=== PATIENT | male | born 1950 | race Caucasian/White ===

== ENCOUNTER 2024-12-22 11:33 | Inpatient (IN) ==
[2024-12-22] MEDS: Acetaminophen IV 1 GM/100ML 1,000 MG/100 ML BAG IV ONE (12:54)
[2024-12-22 13:14] LABS: ABS Basophils 0.1 10^3/uL (0.0-0.1); ABS Eosinophils 0.1 10^3/uL (0.0-0.5); ABS Lymphocytes 0.6 10^3/uL (1.0-4.8); ABS Monocytes 0.2 10^3/uL (0.0-1.1); ABS Neutrophils 6.7 10^3/uL (1.5-7.6); Hematocrit 41.4 % (38-53); Hemoglobin 13.9 g/dL (13.2-16.3); Lymphocyte % 8.2 %; Mean Corpuscular Hgb Conc 33.7 g/dL (31-36); Mean Corpuscular Volume 89.2 fL (80-97); Mean Platelet Volume 7.5 fL (7.5-11.2); Platelet Count 244 10^3/uL (150-450); Red Blood Count 4.64 10^6/uL (4.06-5.63); Red Cell Distribution Width 16.4 % (12-17); White Blood Count 7.7 10^3/uL (3.6-10.2)
[2024-12-22 13:18] LABS: INR 1.08 (0.85-1.14)
[2024-12-22 14:00] LABS: Albumin/Globulin Ratio 1.7 (1-3); Calcium 9.6 mg/dL (8.6-10.3); Creatinine, Serum 0.96 mg/dL (0.67-1.17); Globulin 2.4 g/dL (2-4); Potassium 4.7 mmol/L (3.5-5.0); Total Bilirubin 0.9 mg/dL (0.2-1.0); Total Protein 6.4 g/dL (6.4-8.9)
[2024-12-22] MEDS: Morphine 4 MG/ML VIAL (1 ml) ONE (16:55)
[2024-12-22 19:45] LABS: Urine Appearance Clear; Urine Bilirubin Negative (Negative); Urine Blood 1+ (Negative); Urine Color Light-Yellow; Urine Glucose 3+ (>=300 mg/dL) (Negative); Urine Ketones Negative (Negative); Urine Nitrite Negative (Negative); Urine Protein Negative (Negative); Urine Specific Gravity 1.018 (1.002-1.030); Urine Urobilinogen Negative (Negative); Urine pH 6.5 (5.0-8.0)
[2024-12-22 19:58] LABS: Urine Bacteria Absent /HPF (Absent); Urine Red Blood Cell 2+(6-10/hpf) /HPF (0-Trace); Urine Squamous Epithelial Cell Present /HPF (Absent); Urine White Blood Cell 1+(6-10/hpf) /HPF (0-Trace)
[2024-12-22] MEDS: Morphine 2 MG/ML SYRINGE IV PRN (20:35)
[2024-12-22] MEDS: Heparin 5000 UNITS/ML 1 mL VIAL SUBCUT ONE (20:36)
[2024-12-22] MEDS ORDERED: Senna TAB 8.6 mg TAB PO PRN (22:49)
[2024-12-22] MEDS ORDERED: Polyethylene Glycol 3350 17 GM PACKET PO PRN (22:49)
[2024-12-22] MEDS ORDERED: Magnesium Hydroxide LIQ 30 ML UDC PO PRN (22:49)
[2024-12-23 06:49] LABS: Hematocrit 40.5 % (38-53); Hemoglobin 13.8 g/dL (13.2-16.3); Mean Corpuscular Hemoglobin 30.2 pg (27-33); Mean Corpuscular Hgb Conc 34.1 g/dL (31-36); Mean Corpuscular Volume 88.6 fL (80-97); Red Blood Count 4.57 10^6/uL (4.06-5.63); Red Cell Distribution Width 16.2 % (12-17); White Blood Count 8.5 10^3/uL (3.6-10.2)
[2024-12-23 06:54] LABS: Anion Gap 10 mmol/L (2-16); Blood Urea Nitrogen 16 mg/dL (6-24); CO2 Carbon Dioxide 27 mmol/L (22-32); Calcium 8.9 mg/dL (8.6-10.3); Chloride 102 mmol/L (101-111); Creatinine, Serum 0.77 mg/dL (0.67-1.17); Glucose 125 mg/dL (70-100); Magnesium 1.6 mg/dL (1.9-2.7); Sodium 139 mmol/L (135-145); eGFR CKD-EPI 95.1 (>60)
[2024-12-23 07:59] LABS: ABS Basophils 0.1 10^3/uL (0.0-0.1); ABS Eosinophils 0.1 10^3/uL (0.0-0.5); ABS Monocytes 0.6 10^3/uL (0.0-1.1); ABS Neutrophils 6.8 10^3/uL (1.5-7.6); Eosinophil % 0.8 %; Lymphocyte % 12.1 %; Mean Platelet Volume 8.1 fL (7.5-11.2); Platelet Count 200 10^3/uL (150-450)
[2024-12-23] MEDS: Magnesium Hydroxide LIQ 30 ML UDC PO SCH (08:27)
[2024-12-23] MEDS: Magnesium Sulf 4 GM/100 ML IV 4,000 MG/100 ML BAG IVPB ONE (09:30)
[2024-12-23] MEDS ORDERED: Rocuronium 50 mg VIAL 10 mg/ml 5 ml VIAL (50 mg) ONE (11:59)
[2024-12-23] MEDS ORDERED: Midazolam 2 mg/2 ml VIAL 1 mg/ml 2 ml VIAL (2 mg) ONE (11:59)
[2024-12-23] MEDS ORDERED: Ondansetron 4 mg VIAL 2 MG/ML 2 ml VIAL ONE (11:59)
[2024-12-23] MEDS ORDERED: Lidocaine 2% PF 5 ML VIAL ONE (11:59)
[2024-12-23] MEDS ORDERED: Dexamethasone IV 4 MG/ML VIAL 1 ml VIAL ONE (11:59)
[2024-12-23] MEDS ORDERED: Propofol 10 MG/ML 20 ML BTL ONE (11:59)
[2024-12-23] MEDS ORDERED: fentaNYL 100 mcg/2 ml 50 MCG/ML VIAL ONE (11:59)
[2024-12-23] MEDS ORDERED: ceFAZolin 2 GM PREMIX 2 GM/50 ML BAG ONE (12:50)
[2024-12-23] MEDS ORDERED: HYDROmorphone 1 MG/1 ML SYRINGE IV PRN (12:54)
[2024-12-23] MEDS ORDERED: Naloxone 0.4 mg VIAL 0.4 mg/ml 1 ml VIAL IV PRN (12:54)
[2024-12-23] MEDS ORDERED: Bupivacaine 0.5% 50 ML MDV VIAL ONE (13:14)
[2024-12-23] MEDS ORDERED: Senna TAB 8.6 mg TAB PO PRN (15:58)
[2024-12-23] MEDS: Lactated Ringers 1000 ml BAG 1,000 ML IV SCH ×2 (16:19→17:06)
[2024-12-23] MEDS: Acetaminophen IV 1 GM/100ML 1,000 MG/100 ML BAG IV ONE (16:19)
[2024-12-23 17:19] LABS: Hematocrit 39.6 % (38-53); Hemoglobin 13.5 g/dL (13.2-16.3)
[2024-12-24] MEDS: ceFAZolin 2 GM PREMIX 2 GM/50 ML BAG IV SCH ×2 (00:26→07:24)
[2024-12-24] MEDS: Lactated Ringers 1000 ml BAG 1,000 ML IV ONE (03:32)
[2024-12-24 06:29] LABS: Hemoglobin 10.1 g/dL (13.2-16.3); Mean Platelet Volume 7.9 fL (7.5-11.2); Platelet Count 165 10^3/uL (150-450)
[2024-12-24 06:52] LABS: Blood Urea Nitrogen 21 mg/dL (6-24); CO2 Carbon Dioxide 28 mmol/L (22-32); Calcium 7.9 mg/dL (8.6-10.3); Chloride 105 mmol/L (101-111); Creatinine, Serum 0.91 mg/dL (0.67-1.17); Glucose 247 mg/dL (70-100); Sodium 133 mmol/L (135-145); eGFR CKD-EPI 89.5 (>60)
[2024-12-24 07:47] LABS: Magnesium 1.7 mg/dL (1.9-2.7)
[2024-12-24] MEDS: Enoxaparin 40 MG/0.4 ML SYR SUBCUT SCH (11:03)
[2024-12-25 05:49] LABS: Hemoglobin 8.8 g/dL (13.2-16.3); Mean Corpuscular Hemoglobin 31.1 pg (27-33); Mean Corpuscular Hgb Conc 35.1 g/dL (31-36); Mean Corpuscular Volume 88.7 fL (80-97); Mean Platelet Volume 7.7 fL (7.5-11.2); Platelet Count 137 10^3/uL (150-450); Red Blood Count 2.82 10^6/uL (4.06-5.63); Red Cell Distribution Width 16.2 % (12-17); White Blood Count 6.8 10^3/uL (3.6-10.2)
[2024-12-25 06:20] LABS: Calcium 7.9 mg/dL (8.6-10.3); Creatinine, Serum 0.79 mg/dL (0.67-1.17); Magnesium 1.6 mg/dL (1.9-2.7); Potassium 3.9 mmol/L (3.5-5.0); eGFR CKD-EPI 94.4 (>60)
[2024-12-25] MEDS: Magnesium Sulfate 2 gm BAG 2 GM/50 ML BAG IVPB ONE (11:47)
[2024-12-25 14:50] LABS: Hematocrit 24.7 % (38-53); Hemoglobin 8.5 g/dL (13.2-16.3)
[2024-12-25] MEDS: Magnesium Hydroxide LIQ 30 ML UDC PO PRN (21:52)
[2024-12-25] MEDS: Senna TAB 8.6 mg TAB PO PRN (21:53)
[2024-12-26 06:30] LABS: Hematocrit 24.1 % (38-53); Hemoglobin 8.4 g/dL (13.2-16.3); Mean Corpuscular Hemoglobin 30.9 pg (27-33); Mean Corpuscular Volume 88.4 fL (80-97); Mean Platelet Volume 7.9 fL (7.5-11.2); Platelet Count 141 10^3/uL (150-450); Red Blood Count 2.73 10^6/uL (4.06-5.63); Red Cell Distribution Width 16.5 % (12-17); White Blood Count 6.1 10^3/uL (3.6-10.2)
[2024-12-26] MEDS: Polyethylene Glycol 3350 17 GM PACKET PO PRN (09:50)
[2024-12-26] MEDS ORDERED: Acetaminophen IV 1 GM/100ML 1,000 MG/100 ML BAG IV SCH (12:00)
[2024-12-27 05:36] LABS: Hematocrit 24.6 % (38-53); Hemoglobin 8.4 g/dL (13.2-16.3); Mean Corpuscular Hemoglobin 30.5 pg (27-33); Mean Corpuscular Hgb Conc 34.1 g/dL (31-36); Mean Corpuscular Volume 89.4 fL (80-97); Mean Platelet Volume 7.5 fL (7.5-11.2); Platelet Count 166 10^3/uL (150-450); Red Blood Count 2.75 10^6/uL (4.06-5.63); Red Cell Distribution Width 16.5 % (12-17); White Blood Count 7.4 10^3/uL (3.6-10.2)
[2024-12-27] MEDS: Magnesium Sulfate 2 gm BAG 2 GM/50 ML BAG IVPB ONE (08:49)
[2024-12-27 13:41] LABS: Calcium 8.5 mg/dL (8.6-10.3); Creatinine, Serum 0.91 mg/dL (0.67-1.17); eGFR CKD-EPI 89.5 (>60)
[2024-12-27] MEDS ORDERED: Dextrose 50% Syringe 50 ml 25 GM/50 ML SYRINGE IV PUSH PRN (17:46)
[2024-12-28 06:04] LABS: ABS Eosinophils 0.2 10^3/uL (0.0-0.5); ABS Lymphocytes 0.7 10^3/uL (1.0-4.8); ABS Monocytes 0.5 10^3/uL (0.0-1.1); ABS Neutrophils 4.8 10^3/uL (1.5-7.6); Eosinophil % 2.8 %; Hematocrit 25.5 % (38-53); Hemoglobin 8.6 g/dL (13.2-16.3); Lymphocyte % 11.7 %; Mean Corpuscular Hemoglobin 29.9 pg (27-33); Mean Corpuscular Hgb Conc 33.9 g/dL (31-36); Mean Corpuscular Volume 88.2 fL (80-97); Mean Platelet Volume 7.1 fL (7.5-11.2); Platelet Count 202 10^3/uL (150-450); Red Blood Count 2.89 10^6/uL (4.06-5.63); Red Cell Distribution Width 16.2 % (12-17); White Blood Count 6.3 10^3/uL (3.6-10.2)
[2024-12-28 06:26] LABS: Calcium 8.4 mg/dL (8.6-10.3); Creatinine, Serum 0.88 mg/dL (0.67-1.17); Potassium 3.9 mmol/L (3.5-5.0); eGFR CKD-EPI 91.4 (>60)
[2024-12-28 07:44] LABS: Magnesium 1.8 mg/dL (1.9-2.7)
[2024-12-28] MEDS: Potassium Chlor 20 meq TAB.ER PO ONE (08:35)
[2024-12-28 10:04] VITALS: BP 118/77
== END 2024-12-28 13:45 | DRG 522 ==
LOC: EDHOLD 11:33 → ED 11:33 → SUATTDRO 13:21 → SSU 15:11 → SUATTDRO 12-23 11:43
PROVIDERS: ADMIT Student in an Organized Health Care Education/Training Program; ATTEND Hospitalist

== ENCOUNTER 2024-12-30 15:12 | Inpatient (IN) ==
[2024-12-30 15:59] LABS: ABS Lymphocytes 0.5 10^3/uL (1.0-4.8); ABS Monocytes 0.7 10^3/uL (0.0-1.1); ABS Neutrophils 9.5 10^3/uL (1.5-7.6); ABS Nucleated RBC 0.01 10^3/ul; Hematocrit 23.4 % (38-53); Hemoglobin 8.1 g/dL (13.2-16.3); Lymphocyte % 4.4 %; Mean Corpuscular Hemoglobin 30.9 pg (27-33); Mean Corpuscular Hgb Conc 34.7 g/dL (31-36); Mean Corpuscular Volume 88.9 fL (80-97); Nucleated Red Blood Cells % 0.1 %/100WBC (0.0-0.8); Platelet Count 250 10^3/uL (150-450); Red Blood Count 2.63 10^6/uL (4.06-5.63); Red Cell Distribution Width 16.6 % (12-17); White Blood Count 10.7 10^3/uL (3.6-10.2)
[2024-12-30 16:01] LABS: Activated Partial Thrombo Time 26.7 seconds (26.0-38.0); INR 1.15 (0.85-1.14)
[2024-12-30 16:20] LABS: ALT 16 U/L (7-52); Albumin 3.1 g/dL (3.5-5.7); Albumin/Globulin Ratio 1.3 (1-3); Alkaline Phosphatase 57 U/L (35-149); Anion Gap 5 mmol/L (2-16); Blood Urea Nitrogen 21 mg/dL (6-24); CO2 Carbon Dioxide 33 mmol/L (22-32); Calcium 8.6 mg/dL (8.6-10.3); Chloride 101 mmol/L (101-111); Cholesterol 92 mg/dL; Creatinine, Serum 0.79 mg/dL (0.67-1.17); Globulin 2.3 g/dL (2-4); Glucose 242 mg/dL (70-100); HDL Cholesterol 38.9 mg/dL; LDL Cholesterol 35 mg/dL; Sodium 139 mmol/L (135-145); Total Protein 5.4 g/dL (6.4-8.9); Triglycerides 89 mg/dL; eGFR CKD-EPI 94.4 (>60)
[2024-12-30] MEDS: Morphine 4 MG/ML VIAL (1 ml) IV ONE (17:02)
[2024-12-30] MEDS: Metoprolol Tartrate 5 mg VIAL 5 ml VIAL (1 mg/ml) IV PRN (17:38)
[2024-12-30] MEDS ORDERED: LORazepam 2 MG/ML 1 mL Syringe IV ONE (18:42)
[2024-12-30] MEDS: LORazepam 2 mg VIAL 1 ml IV PUSH ONE ×2 (18:55→19:30)
[2024-12-30 19:03] LABS: Urine Appearance Clear; Urine Bilirubin Negative (Negative); Urine Blood Trace (Negative); Urine Color Yellow; Urine Glucose 2+ (>=150 mg/dL) (Negative); Urine Ketones Negative (Negative); Urine Nitrite Negative (Negative); Urine Protein 1+ (>=30 mg/dL) (Negative); Urine Specific Gravity 1.018 (1.002-1.030); Urine Urobilinogen 1+ (Negative)
[2024-12-30] MEDS ORDERED: LORazepam 2 mg VIAL 1 ml ONE (19:12)
[2024-12-30 19:17] LABS: Urine Bacteria Absent /HPF (Absent); Urine Red Blood Cell 3+(>10/hpf) /HPF (0-Trace); Urine Squamous Epithelial Cell Present /HPF (Absent); Urine White Blood Cell Trace(0-5/hpf) /HPF (0-Trace)
[2024-12-30 19:30] LABS: Direct Bilirubin Redraw 0.3 mg/dL (0.1-0.5)
[2024-12-30] MEDS ORDERED: Metoprolol Tartrate 5 mg VIAL 5 ml VIAL (1 mg/ml) ONE (19:35)
[2024-12-30] MEDS: Lactated Ringers SEPSIS* BAG 2,030 ML IV ONE (20:06)
[2024-12-30 20:08] LABS: Venous Bicarbonate HCO3 28.8 mmol/L (24-28)
[2024-12-30 20:11] LABS: ABS Basophils 0.1 10^3/uL (0.0-0.1); ABS Lymphocytes 0.7 10^3/uL (1.0-4.8); Hematocrit 23.3 % (38-53); Hemoglobin 7.8 g/dL (13.2-16.3); Lymphocyte % 5.2 %; Mean Corpuscular Hemoglobin 29.8 pg (27-33); Mean Corpuscular Hgb Conc 33.6 g/dL (31-36); Mean Corpuscular Volume 88.7 fL (80-97); Mean Platelet Volume 6.9 fL (7.5-11.2); Platelet Count 273 10^3/uL (150-450); Red Blood Count 2.63 10^6/uL (4.06-5.63); Red Cell Distribution Width 16.3 % (12-17); White Blood Count 12.7 10^3/uL (3.6-10.2)
[2024-12-30] MEDS ORDERED: Rocuronium 50 mg VIAL 10 mg/ml 5 ml VIAL (50 mg) ONE ×2 (20:13→20:32)
[2024-12-30] MEDS ORDERED: Succinylcholine 200 mg VIAL 20 mg/ml 10 ml VIAL (200 mg) ONE (20:14)
[2024-12-30] MEDS ORDERED: Propofol 10 mg/ml 100 ML BTL 1,000 MG/100 ML BTL ONE (20:14)
[2024-12-30] MEDS ORDERED: Norepinephrine 32MCG/ML D5WBAG 8,000 MCG/250 ML BAG IV ONE (20:19)
[2024-12-30 20:21] LABS: INR 1.16 (0.85-1.14)
[2024-12-30] MEDS ORDERED: Ketamine HCL 50 mg/ml 10 ml VIAL (500 MG) ONE (20:32)
[2024-12-30] MEDS: Norepinephrine 32MCG/ML D5WBAG 8,000 MCG/250 ML BAG IV SCH (20:32)
[2024-12-30 20:36] LABS: Albumin 3.1 g/dL (3.5-5.7); Albumin/Globulin Ratio 1.3 (1-3); C Reactive Protein 227.47 mg/L (<8.01); Calcium 8.6 mg/dL (8.6-10.3); Creatinine, Serum 0.88 mg/dL (0.67-1.17); Globulin 2.3 g/dL (2-4); Potassium 4.1 mmol/L (3.5-5.0); Total Bilirubin 1.9 mg/dL (0.2-1.0); Total Protein 5.4 g/dL (6.4-8.9); eGFR CKD-EPI 91.4 (>60)
[2024-12-30] MEDS: Propofol 10 mg/ml 100 ML BTL 1,000 MG/100 ML BTL IV SCH (20:45)
[2024-12-30] MEDS ORDERED: fentaNYL 100 mcg/2 ml 50 MCG/ML VIAL ONE (21:18)
[2024-12-30 21:43] LABS: Magnesium 1.8 mg/dL (1.9-2.7); Phosphorus 2.8 mg/dL (2.5-5.0)
[2024-12-30] MEDS: fentaNYL 100 mcg/2 ml 50 MCG/ML VIAL IV SLOW PU ONE (22:45)
[2024-12-30] MEDS: Piperacillin/Tazobac 3.375 BAG 3.375 GM/100 ML BAG IV ONE (22:51)
[2024-12-30] MEDS ORDERED: Vancomycin per Pharmacy 1 EA NOTE FOLLOW UP SCH (23:00)
[2024-12-30] MEDS ORDERED: Zosyn per Pharmacy NOTE FOLLOW UP SCH (23:00)
[2024-12-30] MEDS: Iohexol 350 (CONTRAST) 500 ML MDV IV ONE (23:55)
[2024-12-31] MEDS: Vancomycin 1,000 MG in NS 0.9% 250 ml 250 ML IVPB ONE (00:12)
[2024-12-31] MEDS ORDERED: Lorazepam PYXIS KEY PRN (01:52)
[2024-12-31] MEDS: Chlorhexidine MOUTHWASH 0.12% 15 ML UDC TOPICAL SCH (02:27)
[2024-12-31] MEDS: ZOSYN 3.375 GM Q8H per EXTENDED INFUSION IV SCH (02:27)
[2024-12-31] MEDS ORDERED: ZOSYN 3.375 GM Q8H per EXTENDED INFUSION IV SCH (02:30)
[2024-12-31] MEDS ORDERED: Dextrose 50% Syringe 50 ml 25 GM/50 ML SYRINGE IV PUSH PRN (02:58)
[2024-12-31 04:14] LABS: ABS Basophils 0.1 10^3/uL (0.0-0.1); ABS Lymphocytes 0.9 10^3/uL (1.0-4.8); ABS Monocytes 0.8 10^3/uL (0.0-1.1); ABS Neutrophils 9.2 10^3/uL (1.5-7.6); ABS Nucleated RBC 0.01 10^3/ul; Eosinophil % 0.1 %; Hematocrit 21.1 % (38-53); Hemoglobin 7.6 g/dL (13.2-16.3); Lymphocyte % 8.4 %; Mean Corpuscular Hemoglobin 31.9 pg (27-33); Mean Corpuscular Volume 88.7 fL (80-97); Mean Platelet Volume 7.5 fL (7.5-11.2); Nucleated Red Blood Cells % 0.1 %/100WBC (0.0-0.8); Platelet Count 249 10^3/uL (150-450); Red Blood Count 2.37 10^6/uL (4.06-5.63); Red Cell Distribution Width 16.9 % (12-17)
[2024-12-31 05:01] LABS: ALT 14 U/L (7-52); Albumin 2.7 g/dL (3.5-5.7); Albumin/Globulin Ratio 1.2 (1-3); Alkaline Phosphatase 52 U/L (35-149); Anion Gap 6 mmol/L (2-16); Blood Urea Nitrogen 26 mg/dL (6-24); CO2 Carbon Dioxide 29 mmol/L (22-32); Calcium 7.9 mg/dL (8.6-10.3); Chloride 99 mmol/L (101-111); Creatinine, Serum 0.84 mg/dL (0.67-1.17); Globulin 2.3 g/dL (2-4); Glucose 255 mg/dL (70-100); Sodium 134 mmol/L (135-145); Total Bilirubin 1.9 mg/dL (0.2-1.0); eGFR CKD-EPI 92.7 (>60)
[2024-12-31 06:37] LABS: Potassium, Whole Blood 5.1 mmol/L (3.4-4.5)
[2024-12-31] MEDS: Famotidine IV 10 MG/ML 2 ml VIAL (20 mg) IV SLOW PU SCH (08:07)
[2024-12-31] MEDS ORDERED: Sulfur Hexaflouride MICROSPHR 25 MG VIAL IV PRN (08:35)
[2024-12-31 08:42] LABS: Magnesium 1.8 mg/dL (1.9-2.7); Phosphorus 3.1 mg/dL (2.5-5.0)
[2024-12-31] MEDS ORDERED: Enoxaparin 40 MG/0.4 ML SYR SUBCUT SCH (09:00)
[2024-12-31] MEDS: Acetaminophen IV 1 GM/100ML 1,000 MG/100 ML BAG IV PRN (09:56)
[2024-12-31] MEDS ORDERED: Vancomycin 1000 MG in NS 0.9% 250 ML IVPB SCH (12:00)
[2024-12-31] MEDS: Vancomycin 1000 MG in NS 0.9% 250 ML IVPB SCH (12:07)
[2024-12-31] MEDS: fentaNYL 100 mcg/2 ml 50 MCG/ML VIAL IV SLOW PU PRN (12:24)
[2024-12-31] MEDS: Morphine 4 MG/ML VIAL (1 ml) ONE (14:10)
[2024-12-31] MEDS: Morphine 2 MG/ML SYRINGE IV PRN ×2 (14:53→17:00)
[2024-12-31] MEDS ORDERED: fentaNYL 250 mcg/5 ml 50 MCG/ML 5 ml VIAL (250 MCG) ONE (20:11)
[2024-12-31] MEDS ORDERED: Propofol 10 MG/ML 20 ML BTL ONE (20:11)
[2024-12-31] MEDS ORDERED: Lidocaine 2% PF 5 ML VIAL ONE (20:11)
[2024-12-31] MEDS ORDERED: Lidocaine 1% w EPI 1:200,000 SDV 30 ML VIAL ONE (20:11)
[2024-12-31] MEDS ORDERED: Phenylephrine IV 10 MG/ML 1 ml VIAL ONE (20:12)
[2024-12-31] MEDS ORDERED: Rocuronium 50 mg VIAL 10 mg/ml 5 ml VIAL (50 mg) ONE ×2 (20:12→22:17)
[2024-12-31] MEDS ORDERED: Ondansetron 4 mg VIAL 2 MG/ML 2 ml VIAL ONE (22:33)
[2024-12-31] MEDS ORDERED: Dexamethasone IV 4 MG/ML VIAL 1 ml VIAL ONE (22:33)
[2024-12-31] MEDS ORDERED: Acetaminophen IV 1 GM/100ML 1,000 MG/100 ML BAG IV ONE (23:21)
[2024-12-31] MEDS ORDERED: HYDROmorphone 0.5 MG/0.5 ML SYRINGE ONE (23:25)
[2025-01-01] MEDS: HYDROmorphone 0.5 MG/0.5 ML SYRINGE IV SLOW PU PRN ×2 (01:56→07:50)
[2025-01-01 05:07] LABS: ABS Lymphocytes 0.2 10^3/uL (1.0-4.8); ABS Monocytes 0.4 10^3/uL (0.0-1.1); ABS Neutrophils 9.6 10^3/uL (1.5-7.6); Hematocrit 23.5 % (38-53); Hemoglobin 7.9 g/dL (13.2-16.3); Lymphocyte % 2.4 %; Mean Corpuscular Hemoglobin 29.6 pg (27-33); Mean Corpuscular Hgb Conc 33.9 g/dL (31-36); Mean Corpuscular Volume 87.4 fL (80-97); Platelet Count 271 10^3/uL (150-450); Red Blood Count 2.69 10^6/uL (4.06-5.63); Red Cell Distribution Width 18.9 % (12-17); White Blood Count 10.3 10^3/uL (3.6-10.2)
[2025-01-01 05:54] LABS: Albumin 2.7 g/dL (3.5-5.7); Albumin/Globulin Ratio 1.1 (1-3); Calcium 7.7 mg/dL (8.6-10.3); Globulin 2.4 g/dL (2-4); Magnesium 1.7 mg/dL (1.9-2.7); Phosphorus 3.9 mg/dL (2.5-5.0); Total Bilirubin 1.6 mg/dL (0.2-1.0); Total Protein 5.1 g/dL (6.4-8.9)
[2025-01-01] MEDS: Enoxaparin 40 MG/0.4 ML SYR SUBCUT SCH (07:55)
[2025-01-01] MEDS: Magnesium Sulfate 2 gm BAG 2 GM/50 ML BAG IVPB ONE (09:18)
[2025-01-01] MEDS: Magnesium Sulfate IV 1GM/100ML 1 GM/100 ML BAG IV ONE (10:24)
[2025-01-01] MEDS: ceFAZolin 1 GM in Dextrose 1 GM/50 ML BAG IVPB SCH (10:45)
[2025-01-01] MEDS: Vancomycin Trough Check NOTE FOLLOW UP ONE (12:53)
[2025-01-02 05:28] LABS: ABS Basophils 0.1 10^3/uL (0.0-0.1); ABS Lymphocytes 0.9 10^3/uL (1.0-4.8); ABS Monocytes 0.5 10^3/uL (0.0-1.1); Eosinophil % 0.2 %; Hematocrit 21.2 % (38-53); Hemoglobin 7.4 g/dL (13.2-16.3); Lymphocyte % 10.2 %; Mean Corpuscular Hemoglobin 30.3 pg (27-33); Mean Corpuscular Hgb Conc 34.7 g/dL (31-36); Mean Corpuscular Volume 87.2 fL (80-97); Mean Platelet Volume 6.8 fL (7.5-11.2); Platelet Count 326 10^3/uL (150-450); Red Blood Count 2.43 10^6/uL (4.06-5.63); Red Cell Distribution Width 18.9 % (12-17); White Blood Count 8.4 10^3/uL (3.6-10.2)
[2025-01-02 06:17] LABS: Albumin 2.7 g/dL (3.5-5.7); Albumin/Globulin Ratio 1.2 (1-3); Creatinine, Serum 0.81 mg/dL (0.67-1.17); Globulin 2.2 g/dL (2-4); Magnesium 1.9 mg/dL (1.9-2.7); Phosphorus 2.4 mg/dL (2.5-5.0); Potassium 3.7 mmol/L (3.5-5.0); Total Bilirubin 1.1 mg/dL (0.2-1.0); Total Protein 4.9 g/dL (6.4-8.9); eGFR CKD-EPI 93.7 (>60)
[2025-01-02] MEDS ORDERED: Polyethylene Glycol 3350 17 GM PACKET PO PRN (13:07)
[2025-01-03 06:27] LABS: ABS Eosinophils 0.1 10^3/uL (0.0-0.5); ABS Lymphocytes 0.7 10^3/uL (1.0-4.8); ABS Monocytes 0.7 10^3/uL (0.0-1.1); ABS Neutrophils 8.4 10^3/uL (1.5-7.6); ABS Nucleated RBC 0.01 10^3/ul; Eosinophil % 1.3 %; Hematocrit 22.1 % (38-53); Hemoglobin 7.6 g/dL (13.2-16.3); Lymphocyte % 7.5 %; Mean Corpuscular Hemoglobin 30.3 pg (27-33); Mean Corpuscular Hgb Conc 34.4 g/dL (31-36); Mean Corpuscular Volume 88.1 fL (80-97); Nucleated Red Blood Cells % 0.1 %/100WBC (0.0-0.8); Platelet Count 402 10^3/uL (150-450); Red Blood Count 2.51 10^6/uL (4.06-5.63); Red Cell Distribution Width 18.1 % (12-17); White Blood Count 9.9 10^3/uL (3.6-10.2)
[2025-01-03 06:45] LABS: Calcium 8.3 mg/dL (8.6-10.3); Creatinine, Serum 0.73 mg/dL (0.67-1.17); Magnesium 1.7 mg/dL (1.9-2.7); Phosphorus 2.4 mg/dL (2.5-5.0); Potassium 3.6 mmol/L (3.5-5.0); eGFR CKD-EPI 96.7 (>60)
[2025-01-03] MEDS: Magnesium Sulfate 2 gm BAG 2 GM/50 ML BAG IVPB ONE (07:48)
[2025-01-03 09:08] LABS: C Reactive Protein 178.42 mg/L (<8.01)
[2025-01-03] MEDS: Magnesium Sulfate IV 1GM/100ML 1 GM/100 ML BAG IV ONE (11:58)
[2025-01-04 04:49] LABS: Urine Appearance Clear; Urine Bilirubin Negative (Negative); Urine Blood Trace (Negative); Urine Color Yellow; Urine Glucose Negative (Negative); Urine Ketones Negative (Negative); Urine Nitrite Negative (Negative); Urine Protein Trace (Negative); Urine Specific Gravity 1.013 (1.002-1.030); Urine Urobilinogen Negative (Negative)
[2025-01-04 05:35] LABS: Urine Bacteria Absent /HPF (Absent); Urine Red Blood Cell 1+(3-5/hpf) /HPF (0-Trace); Urine Squamous Epithelial Cell Present /HPF (Absent); Urine White Blood Cell Trace(0-5/hpf) /HPF (0-Trace)
[2025-01-04 05:58] LABS: ABS Eosinophils 0.1 10^3/uL (0.0-0.5); ABS Monocytes 0.6 10^3/uL (0.0-1.1); ABS Neutrophils 8.1 10^3/uL (1.5-7.6); Eosinophil % 1.3 %; Hematocrit 21.5 % (38-53); Hemoglobin 7.2 g/dL (13.2-16.3); Lymphocyte % 10.4 %; Mean Corpuscular Hemoglobin 29.7 pg (27-33); Mean Corpuscular Hgb Conc 33.6 g/dL (31-36); Mean Corpuscular Volume 88.5 fL (80-97); Platelet Count 497 10^3/uL (150-450); Red Blood Count 2.43 10^6/uL (4.06-5.63); Red Cell Distribution Width 18.7 % (12-17); White Blood Count 9.9 10^3/uL (3.6-10.2)
[2025-01-04 06:17] LABS: Calcium 8.2 mg/dL (8.6-10.3); Creatinine, Serum 0.73 mg/dL (0.67-1.17); Magnesium 1.9 mg/dL (1.9-2.7); Potassium 3.9 mmol/L (3.5-5.0); eGFR CKD-EPI 96.7 (>60)
[2025-01-04] MEDS: NS 0.9% 1000 ml BAG 1,000 ML IV ONE (18:23)
[2025-01-04 18:50] LABS: ABS Basophils 0.1 10^3/uL (0.0-0.1); ABS Eosinophils 0.1 10^3/uL (0.0-0.5); ABS Lymphocytes 1.2 10^3/uL (1.0-4.8); ABS Monocytes 0.8 10^3/uL (0.0-1.1); ABS Neutrophils 10.8 10^3/uL (1.5-7.6); ABS Nucleated RBC 0.02 10^3/ul; Eosinophil % 0.9 %; Hematocrit 19.2 % (38-53); Mean Corpuscular Hemoglobin 29.7 pg (27-33); Mean Corpuscular Hgb Conc 33.2 g/dL (31-36); Mean Corpuscular Volume 89.2 fL (80-97); Mean Platelet Volume 7.2 fL (7.5-11.2); Nucleated Red Blood Cells % 0.1 %/100WBC (0.0-0.8); Platelet Count 521 10^3/uL (150-450); Red Blood Count 2.16 10^6/uL (4.06-5.63); Red Cell Distribution Width 18.9 % (12-17)
[2025-01-04 18:52] LABS: Hemoglobin 6.4 g/dL (13.2-16.3)
[2025-01-04 19:44] LABS: ALT 11 U/L (7-52); Albumin 2.5 g/dL (3.5-5.7); Albumin/Globulin Ratio 1.1 (1-3); Alkaline Phosphatase 48 U/L (35-149); Anion Gap 7 mmol/L (2-16); Blood Urea Nitrogen 46 mg/dL (6-24); CO2 Carbon Dioxide 29 mmol/L (22-32); Chloride 103 mmol/L (101-111); Creatinine, Serum 0.82 mg/dL (0.67-1.17); Globulin 2.3 g/dL (2-4); Glucose 145 mg/dL (70-100); Lipase 35 U/L (11.0-82.0); Sodium 139 mmol/L (135-145); Total Bilirubin 1.4 mg/dL (0.2-1.0); Total Protein 4.8 g/dL (6.4-8.9); eGFR CKD-EPI 93.3 (>60)
[2025-01-04] MEDS: Iodixanol 320 (CONTRAST) 100 ML SDV IV ONE (20:06)
[2025-01-04] MEDS: Lactated Ringers 1000 ml BAG 1,000 ML IV ONE (21:25)
[2025-01-04] MEDS: Senna TAB 8.6 mg TAB PO SCH (23:15)
[2025-01-04] MEDS: Lactated Ringers 1000 ml BAG 1,000 ML IV SCH (23:26)
[2025-01-05 06:55] LABS: ABS Monocytes 0.7 10^3/uL (0.0-1.1); ABS Neutrophils 10.3 10^3/uL (1.5-7.6); ABS Nucleated RBC 0.01 10^3/ul; Eosinophil % 0.2 %; Hematocrit 16.3 % (38-53); Hemoglobin 5.5 g/dL (13.2-16.3); Lymphocyte % 8.6 %; Mean Corpuscular Hgb Conc 33.4 g/dL (31-36); Mean Corpuscular Volume 83.8 fL (80-97); Mean Platelet Volume 7.2 fL (7.5-11.2); Nucleated Red Blood Cells % 0.1 %/100WBC (0.0-0.8); Platelet Count 509 10^3/uL (150-450); Red Blood Count 1.95 10^6/uL (4.06-5.63); Red Cell Distribution Width 23.9 % (12-17); White Blood Count 12.1 10^3/uL (3.6-10.2)
[2025-01-05] MEDS: Pantoprazole VIAL 40 MG VIAL IV ONE (08:25)
[2025-01-05 08:54] LABS: Albumin 2.3 g/dL (3.5-5.7); Albumin/Globulin Ratio 1.2 (1-3); Calcium 7.7 mg/dL (8.6-10.3); Creatinine, Serum 0.85 mg/dL (0.67-1.17); Direct Bilirubin 0.3 mg/dL (0.03-0.18); Indirect Bilirubin 1.2 mg/dL (0.3-1.0); Magnesium 1.8 mg/dL (1.9-2.7); Phosphorus 2.7 mg/dL (2.5-5.0); Potassium 4.1 mmol/L (3.5-5.0); Total Bilirubin 1.5 mg/dL (0.2-1.0); Total Protein 4.3 g/dL (6.4-8.9); eGFR CKD-EPI 92.3 (>60)
[2025-01-05 08:59] LABS: Immature Retic Fraction 0.65
[2025-01-05 09:24] LABS: Corrected Retic Count 2.6 % (0.5-2.2); Hematocrit for Retic CNT 16.3 % (38-53); RBC Retic Count 1.95 10^6/ul (4.06-5.63)
[2025-01-05 09:36] LABS: INR 1.22 (0.85-1.14)
[2025-01-05] MEDS: cefTRIAXone 1 gm/50 mL D5W 1 GM/50 ML BAG IV SCH (10:22)
[2025-01-05 10:57] LABS: Activated Partial Thrombo Time 25.5 seconds (26.0-38.0); INR 1.26 (0.85-1.14)
[2025-01-05] MEDS: DOXYcycline 100 MG in NS 0.9% 250 ml 250 ML IVPB SCH (11:01)
[2025-01-05] MEDS: Haloperidol 5 mg/ml SDV IV/IM 5 MG/ML AMP IV SLOW PU PRN (13:26)
[2025-01-05 14:34] LABS: ABS Basophils 0.1 10^3/uL (0.0-0.1); ABS Lymphocytes 0.9 10^3/uL (1.0-4.8); ABS Monocytes 0.8 10^3/uL (0.0-1.1); ABS Neutrophils 7.7 10^3/uL (1.5-7.6); Eosinophil % 0.2 %; Hematocrit 22.8 % (38-53); Hemoglobin 7.8 g/dL (13.2-16.3); Lymphocyte % 9.3 %; Mean Corpuscular Hgb Conc 34.2 g/dL (31-36); Mean Corpuscular Volume 87.8 fL (80-97); Mean Platelet Volume 6.9 fL (7.5-11.2); Platelet Count 428 10^3/uL (150-450); Red Blood Count 2.59 10^6/uL (4.06-5.63); Red Cell Distribution Width 20.5 % (12-17); White Blood Count 9.5 10^3/uL (3.6-10.2)
[2025-01-05] MEDS ORDERED: fentaNYL 100 mcg/2 ml 50 MCG/ML VIAL ONE (14:34)
[2025-01-05] MEDS ORDERED: Midazolam 10 mg/10 ml VIAL 1 mg/ml 10 ml VIAL (10 mg) ONE (14:34)
[2025-01-05 16:10] LABS: .Transferrin 139 mg/dL (203-362); Total Iron Binding Capacity 195 mcg/dL (250-450)
[2025-01-05] MEDS: Phenylephrine 40 mcg/mL 10mL (400mcg) SYRINGE ONE (16:19)
[2025-01-05 16:31] LABS: Ferritin 198.1 ng/mL (24-336)
[2025-01-05 16:34] LABS: Folate 10.14 ng/mL (5.90-24.80)
[2025-01-05 16:36] LABS: Vitamin B12 628 pg/mL (180-914)
[2025-01-05] MEDS: Ferric Gluconate IV 250 MG in NS 0.9% 250 ml 200 ML IVPB SCH (17:36)
[2025-01-05] MEDS: Pantoprazole VIAL 40 MG VIAL IV SCH (19:57)
[2025-01-06 04:28] LABS: ABS Basophils 0.1 10^3/uL (0.0-0.1); ABS Eosinophils 0.1 10^3/uL (0.0-0.5); ABS Lymphocytes 1.1 10^3/uL (1.0-4.8); ABS Monocytes 0.8 10^3/uL (0.0-1.1); ABS Neutrophils 7.2 10^3/uL (1.5-7.6); Eosinophil % 0.8 %; Hematocrit 22.5 % (38-53); Hemoglobin 7.8 g/dL (13.2-16.3); Lymphocyte % 11.9 %; Mean Corpuscular Hemoglobin 30.6 pg (27-33); Mean Corpuscular Hgb Conc 34.9 g/dL (31-36); Mean Corpuscular Volume 87.7 fL (80-97); Mean Platelet Volume 6.7 fL (7.5-11.2); Platelet Count 508 10^3/uL (150-450); Red Blood Count 2.56 10^6/uL (4.06-5.63); Red Cell Distribution Width 20.4 % (12-17); White Blood Count 9.3 10^3/uL (3.6-10.2)
[2025-01-06 05:03] LABS: Calcium 7.9 mg/dL (8.6-10.3); Creatinine, Serum 0.82 mg/dL (0.67-1.17); Magnesium 1.8 mg/dL (1.9-2.7); Potassium 4.3 mmol/L (3.5-5.0); eGFR CKD-EPI 93.3 (>60)
[2025-01-06] MEDS: Magnesium Sulfate 2 gm BAG 2 GM/50 ML BAG IVPB ONE (08:53)
[2025-01-06] MEDS: Polyethylene Glycol 3350 17 GM PACKET PO SCH (09:08)
[2025-01-06] MEDS: HYDROmorphone 0.5 MG/0.5 ML SYRINGE IV SLOW PU PRN (11:23)
[2025-01-07 05:39] LABS: ABS Eosinophils 0.1 10^3/uL (0.0-0.5); ABS Lymphocytes 0.9 10^3/uL (1.0-4.8); ABS Monocytes 0.7 10^3/uL (0.0-1.1); ABS Neutrophils 5.7 10^3/uL (1.5-7.6); ABS Nucleated RBC 0.01 10^3/ul; Eosinophil % 1.6 %; Hematocrit 24.4 % (38-53); Hemoglobin 8.3 g/dL (13.2-16.3); Lymphocyte % 12.4 %; Mean Corpuscular Hemoglobin 30.6 pg (27-33); Mean Corpuscular Hgb Conc 34.1 g/dL (31-36); Mean Corpuscular Volume 89.7 fL (80-97); Mean Platelet Volume 6.6 fL (7.5-11.2); Nucleated Red Blood Cells % 0.1 %/100WBC (0.0-0.8); Platelet Count 560 10^3/uL (150-450); Red Blood Count 2.72 10^6/uL (4.06-5.63); Red Cell Distribution Width 20.5 % (12-17); White Blood Count 7.4 10^3/uL (3.6-10.2)
[2025-01-07 05:56] LABS: Calcium 8.3 mg/dL (8.6-10.3); Creatinine, Serum 0.69 mg/dL (0.67-1.17); Magnesium 1.8 mg/dL (1.9-2.7); eGFR CKD-EPI 98.3 (>60)
[2025-01-07] MEDS: Magnesium Sulfate 2 gm BAG 2 GM/50 ML BAG IVPB ONE (08:34)
[2025-01-07] MEDS ORDERED: HYDROmorphone 0.5 MG/0.5 ML SYRINGE IV SLOW PU PRN (10:18)
[2025-01-07] MEDS: Enoxaparin 40 MG/0.4 ML SYR SUBCUT SCH (12:47)
[2025-01-08 07:04] LABS: ABS Basophils 0.1 10^3/uL (0.0-0.1); ABS Eosinophils 0.1 10^3/uL (0.0-0.5); ABS Lymphocytes 0.9 10^3/uL (1.0-4.8); ABS Monocytes 0.6 10^3/uL (0.0-1.1); ABS Neutrophils 5.4 10^3/uL (1.5-7.6); ABS Nucleated RBC 0.01 10^3/ul; Eosinophil % 1.7 %; Hematocrit 24.7 % (38-53); Hemoglobin 8.6 g/dL (13.2-16.3); Lymphocyte % 12.4 %; Mean Corpuscular Hemoglobin 31.4 pg (27-33); Mean Corpuscular Hgb Conc 34.7 g/dL (31-36); Mean Corpuscular Volume 90.6 fL (80-97); Mean Platelet Volume 6.6 fL (7.5-11.2); Nucleated Red Blood Cells % 0.2 %/100WBC (0.0-0.8); Platelet Count 616 10^3/uL (150-450); Red Blood Count 2.72 10^6/uL (4.06-5.63); Red Cell Distribution Width 21.4 % (12-17); White Blood Count 7.1 10^3/uL (3.6-10.2)
[2025-01-08 07:35] LABS: Calcium 8.4 mg/dL (8.6-10.3); Creatinine, Serum 0.77 mg/dL (0.67-1.17); Magnesium 1.8 mg/dL (1.9-2.7); Potassium 4.2 mmol/L (3.5-5.0); eGFR CKD-EPI 95.1 (>60)
[2025-01-09 05:34] LABS: ABS Basophils 0.1 10^3/uL (0.0-0.1); ABS Eosinophils 0.1 10^3/uL (0.0-0.5); ABS Monocytes 0.6 10^3/uL (0.0-1.1); ABS Neutrophils 4.8 10^3/uL (1.5-7.6); ABS Nucleated RBC 0.01 10^3/ul; Eosinophil % 1.6 %; Hematocrit 29.4 % (38-53); Hemoglobin 9.9 g/dL (13.2-16.3); Lymphocyte % 15.2 %; Mean Corpuscular Hemoglobin 30.8 pg (27-33); Mean Corpuscular Hgb Conc 33.6 g/dL (31-36); Mean Corpuscular Volume 91.6 fL (80-97); Mean Platelet Volume 6.8 fL (7.5-11.2); Nucleated Red Blood Cells % 0.1 %/100WBC (0.0-0.8); Platelet Count 727 10^3/uL (150-450); Red Blood Count 3.22 10^6/uL (4.06-5.63); Red Cell Distribution Width 22.8 % (12-17); White Blood Count 6.6 10^3/uL (3.6-10.2)
[2025-01-09 14:34] LABS: Creatinine, Serum 0.82 mg/dL (0.67-1.17); Magnesium 1.9 mg/dL (1.9-2.7); Potassium 4.6 mmol/L (3.5-5.0); eGFR CKD-EPI 93.3 (>60)
[2025-01-10 05:45] LABS: ABS Basophils 0.1 10^3/uL (0.0-0.1); ABS Eosinophils 0.1 10^3/uL (0.0-0.5); ABS Lymphocytes 0.7 10^3/uL (1.0-4.8); ABS Monocytes 0.6 10^3/uL (0.0-1.1); ABS Neutrophils 6.7 10^3/uL (1.5-7.6); Hematocrit 28.4 % (38-53); Hemoglobin 9.6 g/dL (13.2-16.3); Lymphocyte % 8.3 %; Mean Corpuscular Hemoglobin 30.8 pg (27-33); Mean Corpuscular Hgb Conc 33.6 g/dL (31-36); Mean Corpuscular Volume 91.8 fL (80-97); Mean Platelet Volume 6.4 fL (7.5-11.2); Platelet Count 667 10^3/uL (150-450); Red Cell Distribution Width 22.3 % (12-17); White Blood Count 8.2 10^3/uL (3.6-10.2)
[2025-01-10 06:10] LABS: Calcium 8.8 mg/dL (8.6-10.3); Creatinine, Serum 0.89 mg/dL (0.67-1.17); Magnesium 1.9 mg/dL (1.9-2.7); Potassium 4.6 mmol/L (3.5-5.0); eGFR CKD-EPI 91.1 (>60)
[2025-01-11 06:23] LABS: ABS Basophils 0.1 10^3/uL (0.0-0.1); ABS Eosinophils 0.1 10^3/uL (0.0-0.5); ABS Lymphocytes 1.1 10^3/uL (1.0-4.8); ABS Monocytes 0.6 10^3/uL (0.0-1.1); ABS Neutrophils 5.6 10^3/uL (1.5-7.6); Eosinophil % 1.6 %; Hematocrit 29.7 % (38-53); Hemoglobin 10.1 g/dL (13.2-16.3); Lymphocyte % 14.2 %; Mean Corpuscular Hemoglobin 31.4 pg (27-33); Mean Corpuscular Volume 92.3 fL (80-97); Mean Platelet Volume 6.4 fL (7.5-11.2); Platelet Count 710 10^3/uL (150-450); Red Blood Count 3.22 10^6/uL (4.06-5.63); Red Cell Distribution Width 21.5 % (12-17); White Blood Count 7.4 10^3/uL (3.6-10.2)
[2025-01-11 11:14] VITALS: BP 119/82
== END 2025-01-11 14:08 | DRG 480 ==
LOC: ED 15:12 → SSU 22:15 → EDHOLD 22:15 → SUATTDRO 22:15 → ICU 12-31 00:44 → SSU 01-02 17:59 → ICU 01-05 09:10 → SSU 01-06 08:15
PROVIDERS: ADMIT Student in an Organized Health Care Education/Training Program; ATTEND Hospitalist